=== PATIENT | male | born 1985 | race Asian ===

== ENCOUNTER 2019-08-07 13:25 | Inpatient (IN) | payer OTHER, SELFPAY ==
[~2019-08-07] VITALS: Ht 170.2 cm; Wt 76.4 kg
[2019-08-07 14:16] VITALS: Ht 170.2 cm; Wt 76.4 kg
[2019-08-07 16:29] LABS: BASOPHIL % 0.6 % (0-2); PLATELET COUNT 304 x10^3mcL (130-400); RED CELL DISTRIBUTION WIDTH 13.6 % (11.5-14.5)
[2019-08-07] MEDS ORDERED: ZITHROMAX Z-PA250 MG PO (17:43)
[2019-08-07] MEDS ORDERED: TYLENOL WITH CO1 TA2 PO (17:43)
[2019-08-07] MEDS ORDERED: PROAIR RES117 MCG/Ac INH (17:44)
[2019-08-07 18:22] LABS: C REACTIVE PROTEIN 6.3 mg/dL (<=0.9); CALCIUM 8.8 mg/dL (8.5-10.1); CHLORIDE SERUM 100 mmol/L (98-107); GFR1 > 60 mL/min; GLUCOSE SERUM 101 mg/dL (74-106); POTASSIUM SERUM 4.3 mmol/L (3.5-5.1); SODIUM SERUM 138 mmol/L (136-145)
[2019-08-07 21:24] VITALS: BP 134/63
[2019-08-08 02:57] VITALS: BP 110/66
[2019-08-08 05:25] VITALS: BP 102/55
[2019-08-08 06:01] LABS: UA SPECIFIC GRAVITY >=1.030 (1.005-1.035); microscopic required? YES; urine erythrocyte NEGATIVE (NEGATIVE)
[2019-08-08 07:18] LABS: BASOPHIL % 0.5 % (0-2); PLATELET COUNT 306 x10^3mcL (130-400); RED CELL DISTRIBUTION WIDTH 13.7 % (11.5-14.5)
[2019-08-08 07:56] LABS: ALKALINE PHOSPHATASE 68 U/L (46-116); ALT/SGPT 99 U/L (16-63); AST/SGOT 151 U/L (15-37); BILIRUBIN TOTAL 0.4 mg/dL (0.20-1.00); CALCIUM 8.4 mg/dL (8.5-10.1); CARBON DIOXIDE 29.8 mmol/L (21-32); CHLORIDE SERUM 101 mmol/L (98-107); GFR1 > 60 mL/min; GLUCOSE SERUM 93 mg/dL (74-106); MAGNESIUM 2.3 mg/dL (1.8-2.4); POTASSIUM SERUM 4.4 mmol/L (3.5-5.1); SODIUM SERUM 138 mmol/L (136-145); TOTAL PROTEIN, SERUM 7.7 g/dL (6.4-8.2)
[2019-08-08 13:21] VITALS: BP 101/49
[2019-08-08 18:13] VITALS: BP 107/56
[2019-08-08 20:23] VITALS: BP 112/71
[2019-08-09 06:21] VITALS: BP 96/52
[2019-08-09 08:36] LABS: ALKALINE PHOSPHATASE 65 U/L (46-116); ALT/SGPT 87 U/L (16-63); AST/SGOT 74 U/L (15-37); BILIRUBIN TOTAL 0.4 mg/dL (0.20-1.00); CALCIUM 8.3 mg/dL (8.5-10.1); CARBON DIOXIDE 29.1 mmol/L (21-32); CHLORIDE SERUM 104 mmol/L (98-107); CREATININE SERUM 0.9 mg/dL (0.7-1.3); GFR1 > 60 mL/min; GLUCOSE SERUM 97 mg/dL (74-106); MAGNESIUM 2.2 mg/dL (1.8-2.4); POTASSIUM SERUM 4.6 mmol/L (3.5-5.1); SODIUM SERUM 139 mmol/L (136-145); TOTAL PROTEIN, SERUM 7.4 g/dL (6.4-8.2)
[2019-08-09 08:37] VITALS: BP 95/55
[2019-08-09 08:38] LABS: ALBUMIN 2.9 g/dL (3.4-5.0)
[2019-08-09 12:05] VITALS: BP 102/63
[2019-08-09 16:14] VITALS: BP 96/55
[2019-08-09 21:53] VITALS: BP 112/66
[2019-08-10 04:45] VITALS: BP 109/59
[2019-08-10 07:39] LABS: BASOPHIL % 0.5 % (0-2); PLATELET COUNT 377 x10^3mcL (130-400); RED CELL DISTRIBUTION WIDTH 13.4 % (11.5-14.5)
[2019-08-10 07:50] LABS: ALKALINE PHOSPHATASE 63 U/L (46-116); ALT/SGPT 68 U/L (16-63); AST/SGOT 50 U/L (15-37); BILIRUBIN TOTAL 0.4 mg/dL (0.20-1.00); CALCIUM 8.5 mg/dL (8.5-10.1); CARBON DIOXIDE 28.1 mmol/L (21-32); CHLORIDE SERUM 105 mmol/L (98-107); CREATININE SERUM 0.9 mg/dL (0.7-1.3); GFR1 > 60 mL/min; GLUCOSE SERUM 90 mg/dL (74-106); MAGNESIUM 2.1 mg/dL (1.8-2.4); POTASSIUM SERUM 4.1 mmol/L (3.5-5.1); SODIUM SERUM 140 mmol/L (136-145); TOTAL PROTEIN, SERUM 7.5 g/dL (6.4-8.2)
[2019-08-10 07:54] LABS: ALBUMIN 2.8 g/dL (3.4-5.0)
[2019-08-10 09:07] VITALS: BP 115/70
[2019-08-10 13:16] VITALS: BP 124/77
[2019-08-10 17:01] VITALS: BP 121/87
[2019-08-10 19:45] VITALS: BP 115/49
[2019-08-11 06:16] VITALS: BP 113/54
[2019-08-11 07:53] LABS: ALKALINE PHOSPHATASE 66 U/L (46-116); ALT/SGPT 77 U/L (16-63); AST/SGOT 59 U/L (15-37); BILIRUBIN TOTAL 0.42 mg/dL (0.20-1.00); CALCIUM 9.1 mg/dL (8.5-10.1); CARBON DIOXIDE 26.2 mmol/L (21-32); CHLORIDE SERUM 103 mmol/L (98-107); GFR1 > 60 mL/min; GLUCOSE SERUM 94 mg/dL (74-106); MAGNESIUM 2.2 mg/dL (1.8-2.4); POTASSIUM SERUM 4.1 mmol/L (3.5-5.1); SODIUM SERUM 137 mmol/L (136-145); TOTAL PROTEIN, SERUM 7.8 g/dL (6.4-8.2)
[2019-08-11 08:22] LABS: BASOPHIL % 0.4 % (0-2); PLATELET COUNT 450 x10^3mcL (130-400); RED CELL DISTRIBUTION WIDTH 13.5 % (11.5-14.5)
[2019-08-11 09:07] VITALS: BP 124/77
[2019-08-11 14:23] VITALS: BP 124/84
[2019-08-11 16:21] VITALS: BP 124/84
== END 2019-08-11 18:47 | disposition home or self-care (01) | DRG 177 ==
LOC: ED 13:25 → DU 18:32 → MU 18:32 → DU 08-08 16:41
PROVIDERS: Emergency Medicine; Internal Medicine; ADMIT Internal Medicine Pulmonary Disease; ATTEND Internal Medicine Pulmonary Disease
DX: U07.1 COVID-19 (principal); J96.01 Acute respiratory failure with hypoxia; J12.89 Other viral pneumonia; Z79.899 Other long term (current) drug therapy
CPT/HCPCS: 36600; 83880; 85378; 87804; G0378; J0456; J0696; J1644; J7030; J7060; J8540; Q0092; U0003-CS